=== PATIENT | female | born 1995 | race African-American/Black ===

== ENCOUNTER 2023-08-20 16:53 | Emergency (ER) | payer MEDICAID, OTHER ==
[~2023-08-20] VITALS: Ht 165.1 cm; Wt 53.0 kg
[2023-08-20 16:55] VITALS: RESP 16; TEMP 98.3; O2SAT 100
[2023-08-20] MEDS: ACETAMINOPHEN 500MG TABLET PO ONE (17:32)
[2023-08-20] MEDS: KETOROLAC 30MG/ML VIAL IM ONE (19:23)
[2023-08-20] MEDS ORDERED: IBUP-2029 MT (19:30)
[2023-08-20 20:15] VITALS: BP 118/76; PULSE 88
== END 2023-08-20 20:16 | disposition home or self-care (01) ==
LOC: ER 17:03
DX: R51.9 Headache, unspecified (principal); F41.9 Anxiety disorder, unspecified; I10 Essential (primary) hypertension; Z88.0 Allergy status to penicillin
CPT/HCPCS: 99285; 70450; 81025; 96372; J1885

== ENCOUNTER 2023-10-09 18:47 | Emergency (ER) | payer OTHER ==
[~2023-10-09] VITALS: Ht 162.6 cm; Wt 59.0 kg
[~2023-10-09 18:47] MED LIST: IBUP-2029 MT
[2023-10-09 19:12] VITALS: O2SAT 100
[2023-10-09] MEDS: SODIUM CHLORIDE 0.9% 1000ML BAG (SEPSIS BOLUS) IV ONE (20:30)
[2023-10-09] MEDS: ACETAMINOPHEN 325MG TABLET PO STA (20:47)
[2023-10-09 21:03] LABS: HEMATOCRIT. 32.1 % (36.0-48.0); HEMOGLOBIN. 10.4 g/dL (12.0-16.0); MEAN CORPUSCULAR HEMOGLOBIN 23.8 pg (28.0-32.0); MEAN CORPUSCULAR HGB CONC 32.5 g/dL (31.0-37.0); MEAN CORPUSCULAR VOLUME 73.3 fL (81.0-99.0); MEAN PLATELET VOLUME 8.7 fl (7.4-10.4); PLATELET 236 x1000/uL (130-400); RED BLOOD CELL COUNT 4.38 mill/uL (4.2-5.4); WHITE BLOOD COUNT 10.8 x1000/uL (4.5-11.0)
[2023-10-09 21:06] LABS: DIFFERENTIAL COMMENT 1
[2023-10-09 21:10] LABS: CHLORIDE 97 mEq/L (98-107); SODIUM 131 mEq/L (136-145)
[2023-10-09 21:11] LABS: CALCIUM 9.4 mg/dL (8.7-10.4); CARBON DIOXIDE 25 mEq/L (21-32)
[2023-10-09 21:14] LABS: POTASSIUM 2.7 mEq/L (3.5-5.1)
[2023-10-09 21:16] LABS: CREATININE 1.5 mg/dL (0.6-1.0); GLUCOSE 140 mg/dL (70-105); UREA NITROGEN BLOOD 22 mg/dL (9-23)
[2023-10-09 21:18] LABS: ALANINE AMINOTRANSFERASE 13 IU/L (10-49); ALBUMIN 4.3 g/dL (3.2-4.8); ASPARTATE AMINOTRANSFERASE 16 IU/L (<34); BILIRUBIN TOTAL 0.6 mg/dL (0.1-1.0); PROTEIN TOTAL 7.8 g/dL (6.0-8.3)
[2023-10-09 21:26] LABS: HYPOCHROMASIA 1+; MICROCYTOSIS 2+; PLATELET ESTIMATE NORMAL
[2023-10-09 21:59] LABS: HCG SCREEN NEGATIVE
[2023-10-09] MEDS: LOPERAMIDE HCL 2MG CAPSULE PO ONE (22:18)
[2023-10-09] MEDS: ONDANSETRON HCL 4MG/2ML INJ IV ONE (22:19)
[2023-10-09] MEDS: MORPHINE SULFATE 2 MG/ML CPJ (NOT FOR IM USE) IV ONE (22:19)
[2023-10-09] MEDS: KCL 20MEQ/100ML PREMIX 100 ML IV SCH (23:09)
[2023-10-09] MEDS: POTASSIUM CHLORIDE 20MEQ TABLET SR PO ONE (23:09)
[2023-10-10 00:12] VITALS: BP 111/67; PULSE 97; RESP 13; TEMP 103
== END 2023-10-10 00:40 | disposition short-term general hospital (02) ==
LOC: ER 18:47
DX: I95.1 Orthostatic hypotension (principal); K52.9 Noninfective gastroenteritis and colitis, unspecified; E87.6 Hypokalemia; N17.9 Acute kidney failure, unspecified; F41.9 Anxiety disorder, unspecified; I10 Essential (primary) hypertension
CPT/HCPCS: 80053; 84703; 83605; 83735; 85025; 87040; 36415; 84145; 71045; 93005; 96361; 96365; 96375; 99285; J2405; J3480; J2270; J7030; Z7610 ×4